=== PATIENT | male | born 1965 | race American Indian/Alaskan Native ===

== ENCOUNTER 2018-07-02 13:31 | Emergency (ER) | payer OTHER ==
--- NOTE | 2018-07-02 13:38 | Emergency Department Report ---
Blank Doc - Documentation Documentation: This is a 52-year-old male that presents with left shoulder pain. Stated inju red it at work. This initial assessment/diagnostic orders/clinical plan/treatment(s) is/are subject to change based on patient's health status, clinical progression and re- assessment by fellow clinical providers in the ED. Further treatment and workup at subsequent clinical providers discretion. Patient/guardians urged not to elope from the ED as their condition may be serious if not clinically assessed and managed. Initial orders include: 1- Patient sent to [facility] for further evaluation and treatment 2- xray
--- NOTE | 2018-07-02 14:17 | XRay Report ---
Left shoulder 3 views: History: Shoulder pain. Findings: Moderate arthritic changes a.c. joint. Glenohumeral joint appears normal. Cystic area but it tuberosity humerus. No adjacent soft tissue calcification. Impression: Findings as detailed above. Arthritic changes at a.c. joint and
[2018-07-02] MEDS ORDERED: TORADOL IM ONE (16:09)
[2018-07-02] MEDS ORDERED: TORADOL ONE (16:12)
--- NOTE | 2018-07-02 16:50 | Emergency Department Report ---
ED Extremity Problem HPI - General Chief complaint: Shoulder Injury Stated complaint: LFT SHOULDER PAIN Time Seen by Provider: 07/02/18 13:37 Source: patient Mode of arrival: Ambulatory Limitations: No Limitations - History of Present Illness Initial comments: Patient 52-year-old -[place] male who states at work he was lifting something over his head and he felt some pain in his left shoulder and left neck. Patient states the pain is aching throbbing sensation is 7 out of 10 with radiation down through his left arm. Patient denies any direct trauma. Severity scale (0 -10): 7 - Related Data Previous Rx's Medication Instructions Recorded Last Taken Type HYDROcodone/APAP 10-325 [[place] 1 each PO Q6HR PRN #20 tablet 03/28/15 Unknown Rx 10/325] cephALEXin [Keflex] 500 mg PO Q12HR #40 cap 03/28/15 Unknown Rx Ibuprofen [Ibu] 800 mg PO Q8H PRN #20 tablet 07/02/18 Unknown Rx methOCARBAMOL [Robaxin TAB] 500 mg PO Q6H PRN #14 tablet 07/02/18 Unknown Rx traMADol [Ultram] 50 mg PO Q6HR PRN #12 tablet 07/02/18 Unknown Rx Allergies Allergy/AdvReac Type Severity Reaction Status Date / Time No Known Allergies Allergy Unverified 03/28/15 11:52 ED Review of Systems ROS: Stated complaint: LFT SHOULDER PAIN Other details as noted in HPI Comment: All other systems reviewed and negative ED Past Medical Hx - Past Medical History Previous Medical History?: No - Surgical History Past Surgical History?: No - Social History Smoking Status: Current Every Day Smoker Substance Use Type: Alcohol - Medications Home Medications: Home Medications Medication Instructions Recorded Confirmed Last Taken Type HYDROcodone/APAP 10-325 [[place] 1 each PO Q6HR PRN #20 tablet 03/28/15 Unknown Rx 10/325] cephALEXin [Keflex] 500 mg PO Q12HR #40 cap 03/28/15 Unknown Rx Ibuprofen [Ibu] 800 mg PO Q8H PRN #20 tablet 07/02/18 Unknown Rx methOCARBAMOL [Robaxin TAB] 500 mg PO Q6H PRN #14 tablet 07/02/18 Unknown Rx traMADol [Ultram] 50 mg PO Q6HR PRN #12 tablet 07/02/18 Unknown Rx ED Physical Exam - General Limitations: No Limitations General appearance: alert, in no apparent distress - Head Head exam: Present: atraumatic, normocephalic - Eye Eye exam: Present: normal appearance - ENT ENT exam: Present: mucous membranes moist - Neck Neck exam: Present: normal inspection - Respiratory Respiratory exam: Present: normal lung sounds bilaterally. Absent: respiratory distress - Cardiovascular Cardiovascular Exam: Present: regular rate, normal rhythm. Absent: systolic murmur, diastolic murmur, rubs, gallop - GI/Abdominal GI/Abdominal exam: Present: soft, normal bowel sounds - Rectal Rectal exam: Present: deferred - Extremities Exam Extremities exam: Present: normal inspection - Expanded Upper Extremity Exam Left Shoulder Exam: Present: full ROM, tenderness (generalized). Absent: swelling, abrasion, laceration, ecchymosis, deformity, crepidus, dislocation, erythema - Back Exam Back exam: Present: normal inspection - Neurological Exam Neurological exam: Present: alert, oriented X3 - Psychiatric Psychiatric exam: Present: normal affect, normal mood - Skin Skin exam: Present: warm, dry, intact, normal color. Absent: rash ED Course Vital Signs 07/02/18 07/02/18 13:37 16:15 Temperature 97.7 F Pulse Rate 89 Respiratory 16 18 Rate Blood Pressure 148/99 O2 Sat by Pulse 99 Oximetry ED Medical Decision Making - Radiology Data X-ray shows arthritic changes to the before meals joint but otherwise no acute process - Medical Decision Making Patient likely with cervical radiculopathy secondary to raise his head and straining his neck causing a pinched nerve. Patient will be given this symptomatically be discharged home. Critical care attestation.: If time is entered above; I have spent that time in minutes in the direct care of this critically ill patient, excluding procedure time. ED Disposition Clinical Impression: Cervical radiculopathy Disposition: DC-01 TO HOME OR SELFCARE Is pt being admited?: No Does the pt Need Aspirin: No Condition: Stable Instructions: Cervical Radiculopathy (ED) Referrals: [facility] [Other] - 3-5 Days Time of Disposition: 16:49
[2018-07-02 16:57] VITALS: BP 141/90
== END 2018-07-02 16:57 | disposition home or self-care (01) ==
LOC: ED 13:31
DX: M54.12 Radiculopathy, cervical region (principal); F17.200 Nicotine dependence, unspecified, uncomplicated
CPT/HCPCS: 73030; 96372; 99283; J1885

== ENCOUNTER 2018-10-02 19:00 | Emergency (ER) | payer SELFPAY ==
[2018-10-02 19:13] VITALS: BP 132/89
[2018-10-02] MEDS ORDERED: IBUPROFEN PO ONE (19:20)
--- NOTE | 2018-10-02 19:21 | Emergency Department Report ---
ED General Adult HPI - General Chief complaint: Urogenital-Male Stated complaint: GROIN PAINFUL Time Seen by Provider: 10/02/18 19:16 Source: patient Mode of arrival: Ambulatory Limitations: No Limitations - History of Present Illness Initial comments: 53 y/o male comes in for right groin pain after slipping and did a slit. Patient denies any testicular pain or swelling. Patient report that this happen a day ago while at work. Patient took 1 dose of IB. Denies any blood in urine. Patient denies any other injuries. Onset/Timin -: days(s) Location: genitals (Groin) Severity scale (0 -10): 5 Quality: aching Consistency: intermittent Improves with: none Worsens with: none Associated Symptoms: denies other symptoms Treatments Prior to Arrival: none - Related Data Previous Rx's Medication Instructions Recorded Last Taken Type HYDROcodone/APAP 10-325 [[place] 1 each PO Q6HR PRN #20 tablet 03/28/15 Unknown Rx 10/325] cephALEXin [Keflex] 500 mg PO Q12HR #40 cap 03/28/15 Unknown Rx Ibuprofen [Ibu] 800 mg PO Q8H PRN #20 tablet 07/02/18 Unknown Rx methOCARBAMOL [Robaxin TAB] 500 mg PO Q6H PRN #14 tablet 07/02/18 Unknown Rx traMADol [Ultram] 50 mg PO Q6HR PRN #12 tablet 07/02/18 Unknown Rx Ibuprofen [Motrin 800 MG tab] 800 mg PO Q8HR PRN #21 tablet 10/02/18 Unknown Rx Allergies Allergy/AdvReac Type Severity Reaction Status Date / Time No Known Allergies Allergy Unverified 03/28/15 11:52 ED Review of Systems ROS: Stated complaint: GROIN PAINFUL Other details as noted in HPI Comment: All other systems reviewed and negative ED Past Medical Hx - Social History Smoking Status: Current Every Day Smoker Substance Use Type: Alcohol - Medications Home Medications: Home Medications Medication Instructions Recorded Confirmed Last Taken Type HYDROcodone/APAP 10-325 [[place] 1 each PO Q6HR PRN #20 tablet 03/28/15 Unknown Rx 10/325] cephALEXin [Keflex] 500 mg PO Q12HR #40 cap 03/28/15 Unknown Rx Ibuprofen [Ibu] 800 mg PO Q8H PRN #20 tablet 07/02/18 Unknown Rx methOCARBAMOL [Robaxin TAB] 500 mg PO Q6H PRN #14 tablet 07/02/18 Unknown Rx traMADol [Ultram] 50 mg PO Q6HR PRN #12 tablet 07/02/18 Unknown Rx Ibuprofen [Motrin 800 MG tab] 800 mg PO Q8HR PRN #21 tablet 10/02/18 Unknown Rx ED Physical Exam - General Limitations: No Limitations General appearance: alert, in no apparent distress - Head Head exam: Present: atraumatic, normocephalic - Eye Eye exam: Present: normal appearance - ENT ENT exam: Present: mucous membranes moist - Cardiovascular Cardiovascular Exam: Present: regular rate, normal rhythm. Absent: systolic murmur, diastolic murmur, rubs, gallop - GI/Abdominal GI/Abdominal exam: Present: soft, normal bowel sounds - exam: Absent: testicular tenderness, scrotal swelling External exam: Present: other (right groin tenderness with palpation. ) - Extremities Exam Extremities exam: Present: normal inspection - Back Exam Back exam: Present: normal inspection - Neurological Exam Neurological exam: Present: alert, oriented X3 ED Course Vital Signs 10/02/18 19:11 Temperature 97.8 F Pulse Rate 97 H Blood Pressure 132/89 O2 Sat by Pulse 97 Oximetry ED Medical Decision Making - Medical Decision Making 53 y/o male comes in for right groin pain after slipping and did a slit. Patient denies any testicular pain or swelling. Patient report that this happen a day ago while at work. Patient took 1 dose of IB. Denies any blood in urine. Patient denies any other injuries. Patient was givenIB 800mg now and will be discharge on IB 800mg and rest. Critical care attestation.: If time is entered above; I have spent that time in minutes in the direct care of this critically ill patient, excluding procedure time. ED Disposition Clinical Impression: Strain of muscle of right groin region Disposition: DC-01 TO HOME OR SELFCARE Is pt being admited?: No Does the pt Need Aspirin: No Condition: Stable Instructions: Muscle Strain (ED) Additional Instructions: Return to ER for wosening symptoms. Prescriptions: Ibuprofen [Motrin 800 MG tab] 800 mg PO Q8HR PRN #21 tablet PRN Reason: Pain , Severe (7-10) Referrals: [facility] [Provider Group] - 3-5 Days Forms: Work/School Release Form(ED)
== END 2018-10-02 20:24 | disposition home or self-care (01) ==
LOC: ED 19:00
DX: S39.011A Strain of muscle, fascia and tendon of abdomen, initial encounter (principal); F17.200 Nicotine dependence, unspecified, uncomplicated; Z79.899 Other long term (current) drug therapy; W18.40XA Slipping, tripping and stumbling without falling, unspecified, initial encounter; Y93.89 Activity, other specified; Y92.89 Other specified places as the place of occurrence of the external cause; Y99.8 Other external cause status
CPT/HCPCS: 99282

== ENCOUNTER 2019-02-06 23:00 | Emergency (ER) | payer SELFPAY ==
[2019-02-06 23:30] VITALS: BP 181/113
--- NOTE | 2019-02-07 00:30 | Emergency Department Report ---
ED ENT HPI - General Chief complaint: Nosebleed Stated complaint: NOSE BLEED Time Seen by Provider: 02/06/19 23:58 Source: patient Mode of arrival: Ambulatory Limitations: No Limitations - History of Present Illness Initial comments: 53-year-old male with history of hypertension and presents to ED for nosebleed. Patient states he had a nosebleed while at work and was told to come to the ER by his manager solution. Patient states over the last 6 months he has been having intermittent nosebleeds. The patient states they usually resolve pressure. Patient does not have a primary care physician, is not currently taking any medications, including no antihypertensives and no blood thinners. Nosebleed has currently resolved. Patient has no complaints. Denies headache. MD complaint: epistaxis -: This evening Location: nose Severity: mild Consistency: now resolved Improves with: pressure Worsens with: none Context-Epistaxis: history of similar - Related Data Previous Rx's Medication Instructions Recorded Last Taken Type HYDROcodone/APAP 10-325 [[place] 1 each PO Q6HR PRN #20 tablet 03/28/15 Unknown Rx 10/325] cephALEXin [Keflex] 500 mg PO Q12HR #40 cap 03/28/15 Unknown Rx Ibuprofen [Ibu] 800 mg PO Q8H PRN #20 tablet 07/02/18 Unknown Rx methOCARBAMOL [Robaxin TAB] 500 mg PO Q6H PRN #14 tablet 07/02/18 Unknown Rx traMADoL [Ultram] 50 mg PO Q6HR PRN #12 tablet 07/02/18 Unknown Rx Ibuprofen [Motrin 800 MG tab] 800 mg PO Q8HR PRN #21 tablet 10/02/18 Unknown Rx hydroCHLOROthiazide [HCTZ] 25 mg PO QDAY #30 tablet 02/07/19 Unknown Rx Allergies Allergy/AdvReac Type Severity Reaction Status Date / Time No Known Allergies Allergy Verified 02/06/19 23:13 ED Dental HPI - General Chief complaint: Nosebleed Stated complaint: NOSE BLEED Time Seen by Provider: 02/06/19 23:58 Source: patient Mode of arrival: Ambulatory Limitations: No Limitations - Related Data Previous Rx's Medication Instructions Recorded Last Taken Type HYDROcodone/APAP 10-325 [[place] 1 each PO Q6HR PRN #20 tablet 03/28/15 Unknown Rx 10/325] cephALEXin [Keflex] 500 mg PO Q12HR #40 cap 03/28/15 Unknown Rx Ibuprofen [Ibu] 800 mg PO Q8H PRN #20 tablet 07/02/18 Unknown Rx methOCARBAMOL [Robaxin TAB] 500 mg PO Q6H PRN #14 tablet 07/02/18 Unknown Rx traMADoL [Ultram] 50 mg PO Q6HR PRN #12 tablet 07/02/18 Unknown Rx Ibuprofen [Motrin 800 MG tab] 800 mg PO Q8HR PRN #21 tablet 10/02/18 Unknown Rx hydroCHLOROthiazide [HCTZ] 25 mg PO QDAY #30 tablet 02/07/19 Unknown Rx Allergies Allergy/AdvReac Type Severity Reaction Status Date / Time No Known Allergies Allergy Verified 02/06/19 23:13 ED Review of Systems ROS: Stated complaint: NOSE BLEED Other details as noted in HPI Comment: All other systems reviewed and negative ENT: epistaxis Neurological: denies: headache Hematological/Lymphatic: denies: easy bruising ED Past Medical Hx - Past Medical History Previous Medical History?: Yes Hx Hypertension: Yes - Surgical History Past Surgical History?: No - Social History Smoking Status: Never Smoker Substance Use Type: None - Medications Home Medications: Home Medications Medication Instructions Recorded Confirmed Last Taken Type HYDROcodone/APAP 10-325 [[place] 1 each PO Q6HR PRN #20 tablet 03/28/15 Unknown Rx 10/325] cephALEXin [Keflex] 500 mg PO Q12HR #40 cap 03/28/15 Unknown Rx Ibuprofen [Ibu] 800 mg PO Q8H PRN #20 tablet 07/02/18 Unknown Rx methOCARBAMOL [Robaxin TAB] 500 mg PO Q6H PRN #14 tablet 07/02/18 Unknown Rx traMADoL [Ultram] 50 mg PO Q6HR PRN #12 tablet 07/02/18 Unknown Rx Ibuprofen [Motrin 800 MG tab] 800 mg PO Q8HR PRN #21 tablet 10/02/18 Unknown Rx hydroCHLOROthiazide [HCTZ] 25 mg PO QDAY #30 tablet 02/07/19 Unknown Rx ED Physical Exam - General Limitations: No Limitations General appearance: alert, in no apparent distress - Head Head exam: Present: atraumatic, normocephalic - Eye Eye exam: Present: normal appearance, EOMI - ENT ENT exam: Present: other (dried blood in right nare, no active bleeding) - Neck Neck exam: Present: normal inspection - Respiratory Respiratory exam: Present: normal lung sounds bilaterally. Absent: respiratory distress - Cardiovascular Cardiovascular Exam: Present: regular rate, normal rhythm - GI/Abdominal GI/Abdominal exam: Absent: distended - Extremities Exam Extremities exam: Present: normal inspection - Neurological Exam Neurological exam: Present: alert, oriented X3, CN II-XII intact. Absent: motor sensory deficit - Psychiatric Psychiatric exam: Present: normal affect, normal mood - Skin Skin exam: Present: warm, dry, intact, normal color ED Course Vital Signs 02/06/19 02/07/19 23:06 01:04 Temperature 98.4 F 98.4 F Pulse Rate 77 77 Respiratory 20 20 Rate Blood Pressure 181/113 O2 Sat by Pulse 98 98 Oximetry ED Medical Decision Making - Medical Decision Making 53-year-old male presents to ED following nosebleed because he was instructed to do so by his manager solution at work. Patient states nosebleeds intermittently over the last 6 months. Patient currently has no active bleeding. Blood pressure is elevated, however he is asymptomatic. Will start patient on hydrochlorothiazide. Advised outpatient follow-up. Referrals given. - Differential Diagnosis epistaxis, HTN Critical care attestation.: If time is entered above; I have spent that time in minutes in the direct care of this critically ill patient, excluding procedure time. ED Disposition Clinical Impression: Epistaxis, Uncontrolled hypertension Disposition: TO HOME OR SELFCARE Is pt being admited?: No Condition: Stable Instructions: Epistaxis (ED), Hypertension (ED) Prescriptions: hydroCHLOROthiazide [HCTZ] 25 mg PO QDAY #30 tablet Referrals: [facility] [Provider Group] - 3-5 Days KIRA MATHEWS MD [Staff Physician] - 3-5 Days [facility] [Outside] - 3-5 Days Time of Disposition: 00:30
== END 2019-02-07 01:04 | disposition home or self-care (01) ==
LOC: ED 23:00
DX: I10 Essential (primary) hypertension (principal); R04.0 Epistaxis; Z79.1 Long term (current) use of non-steroidal anti-inflammatories (NSAID); Z79.899 Other long term (current) drug therapy
CPT/HCPCS: 99282

== ENCOUNTER 2019-06-02 23:15 | Emergency (ER) | payer SELFPAY ==
--- NOTE | 2019-06-03 00:33 | XRay Report ---
CHEST 2 VIEWS INDICATION / CLINICAL INFORMATION: cough. COMPARISON: None available. FINDINGS: SUPPORT DEVICES: None. HEART / MEDIASTINUM: Heart size is normal. Mild atherosclerotic changes are noted in the thoracic aor ta. LUNGS / PLEURA: No significant pulmonary or pleural abnormality. No pneumothorax. ADDITIONAL FINDINGS: No significant additional findings. IMPRESSION: 1. No acute findings. Signer Name: Adalberto Cuellar MD Signed: 06/03/2019 12:29 AM Workstation Name: [id number]
[2019-06-03] MEDS ORDERED: KETOROLAC 30 MG/1 ML INJ IV ONE (02:47)
[2019-06-03] MEDS ORDERED: ONDANSETRON 4 MG/2 ML INJ IV ONE (02:47)
[2019-06-03] MEDS ORDERED: DIPHENOXYLATE/ATROPINE TAB PO ONE (02:47)
[2019-06-03] MEDS ORDERED: FAMOTIDINE 20 MG/2 ML INJ IV ONE (02:48)
[2019-06-03 03:16] LABS: Basophils % (Auto) 0.5 % (0.0-1.8); Eosinophils # (Auto) 0.1 K/mm3 (0.0-0.4); Hematocrit 42.1 % (35.5-45.6); Hemoglobin 14.3 gm/dl (11.8-15.2); Lymphocytes % (Auto) 44.4 % (13.4-35.0); Mean Corpuscular HGB Conc 34 % (32-34); Mean Corpuscular Volume 88 fl (84-94); Monocytes # (Auto) 0.7 K/mm3 (0.0-0.8); Monocytes % (Auto) 10.1 % (0.0-7.3); Red Blood Count 4.81 M/mm3 (3.65-5.03); Red Cell Distribution Width 14.7 % (13.2-15.2)
[2019-06-03 03:22] LABS: Platelet Count 146 K/mm3 (140-440)
[2019-06-03 03:26] LABS: Alanine Aminotransferase 63 units/L (7-56); Albumin 4.7 g/dL (3.9-5); BUN/Creatinine Ratio 13; Blood Urea Nitrogen 10 mg/dL (9-20); Calcium 9.5 mg/dL (8.4-10.2); Hemolysis Index 72
[2019-06-03] MEDS ORDERED: SODIUM CHLORIDE 0.9% 1000 ML 1,000 ML IV ONE (03:28)
--- NOTE | 2019-06-03 04:02 | Cat Scan Report ---
CT abdomen pelvis w con INDICATION / CLINICAL INFORMATION: Pt complains of L.L.Q. abd pain and Diarrhea. Diverticulitis. TECHNIQUE: All CT scans at this location are performed using CT dose reduction for ALARA by means of automated e xposure control. COMPARISON: None available. FINDINGS: Limited lower thoracic images are negative. ABDOMEN: The gallbladder, liver, spleen, pancreas and kidneys are normal. No adrenal masses or retroperitoneal adenopathy. Small bowel is normal in appearance. Pelvis: The appendix is normal. No acute colon abnormality. No inflammatory changes or dependent fluid collections are seen in the pelvis. No acute colon abnormality Degenerative changes are identified in the lumbosacral spine and right hip. IMPRESSION: 1. No acute abnormality. Signer Name: Adalberto Cuellar MD Signed: 06/03/2019 3:57 AM Workstation Name: [id number]
[2019-06-03 05:35] LABS: Bilirubin,Urine NEG (Negative); Blood,Urine NEG (Negative); Color,Urine Colorless (Yellow); Protein,Urine <15 mg/dL mg/dL (Negative); RBC,Urine < 1.0 /HPF (0.0-6.0); Urobilinogen,Urine < 2.0 mg/dL (<2.0); WBC,Urine < 1.0 /HPF (0.0-6.0)
--- NOTE | 2019-06-03 06:03 | Emergency Department Report ---
ED General Adult HPI - General Chief complaint: Fever Stated complaint: DIARRHEA,FEVER Source: patient Mode of arrival: Ambulatory Limitations: No Limitations - History of Present Illness Initial comments: Patient is a 53-year-old -[place] male with past medical history of hypertension who presents to the ED with complaint of acute onset persistent acute onset persistent nasal and sinus congestion, persistent dry cough, intermittent diarrhea and left lower quadrant abdominal pain for the last 2 weeks with subjective fever. Patient states that in the last 2 days, diarrhea and nasal congestion have worsened. Patient denies dizziness, syncope, testicular pain, chest pain, shortness of breath, nausea, vomiting, hematuria, low back pain, sore throat, headache, body aches and syncope or palpitations. Patient states that no one else at home is had similar symptoms. MD Complaint: Cough, nasal congestion; LLQ pain and subjective fever x 2 weeks -: Gradual, week(s) (2) Location: chest, abdomen Radiation: non-radiation Severity scale (0 -10): 3 Quality: aching, dull Consistency: constant Improves with: none Worsens with: none Associated Symptoms: denies other symptoms, cough, fever/chills, headaches, loss of appetite, malaise. denies: confusion, chest pain, diaphoresis, nausea/vomiting, rash, seizure, shortness of breath, syncope, weakness, other Treatments Prior to Arrival: none - Related Data Previous Rx's Medication Instructions Recorded Last Taken Type HYDROcodone/APAP 10-325 [[place] 1 each PO Q6HR PRN #20 tablet 03/28/15 Unknown Rx 10/325] cephALEXin [Keflex] 500 mg PO Q12HR #40 cap 03/28/15 Unknown Rx Ibuprofen [Ibu] 800 mg PO Q8H PRN #20 tablet 07/02/18 Unknown Rx methOCARBAMOL [Robaxin TAB] 500 mg PO Q6H PRN #14 tablet 07/02/18 Unknown Rx traMADoL [Ultram] 50 mg PO Q6HR PRN #12 tablet 07/02/18 Unknown Rx Ibuprofen [Motrin 800 MG tab] 800 mg PO Q8HR PRN #21 tablet 10/02/18 Unknown Rx hydroCHLOROthiazide [HCTZ] 25 mg PO QDAY #30 tablet 02/07/19 Unknown Rx Benzonatate [Tessalon Perles] 100 mg PO Q8HR #30 capsule 06/03/19 Unknown Rx Cetirizine HCl [Zyrtec 10mg tab] 10 mg PO DAILY #30 tablet 06/03/19 Unknown Rx Dicyclomine [Bentyl] 20 mg PO Q6H PRN #24 tablet 06/03/19 Unknown Rx Diphenoxylate/Atropine [Lomotil] 1 - 2 tab PO Q4H PRN #15 tablet 06/03/19 Unknown Rx Allergies Allergy/AdvReac Type Severity Reaction Status Date / Time No Known Allergies Allergy Verified 02/06/19 23:13 ED Review of Systems ROS: Stated complaint: DIARRHEA,FEVER Other details as noted in HPI Constitutional: chills, fever, malaise Eyes: denies: eye pain, eye discharge, vision change ENT: congestion. denies: ear pain, throat pain Respiratory: cough. denies: shortness of breath, wheezing Cardiovascular: denies: chest pain, palpitations Endocrine: no symptoms reported Gastrointestinal: abdominal pain (Left lower quadrant pain), diarrhea. denies: nausea, vomiting Genitourinary: denies: urgency, dysuria Musculoskeletal: denies: back pain, joint swelling, arthralgia Skin: denies: rash, lesions Neurological: denies: headache, weakness, paresthesias Psychiatric: denies: anxiety, depression Hematological/Lymphatic: denies: easy bleeding, easy bruising ED Past Medical Hx - Past Medical History Previous Medical History?: Yes Hx Hypertension: Yes - Surgical History Past Surgical History?: No - Social History Smoking Status: Current Every Day Smoker Substance Use Type: Alcohol - Medications Home Medications: Home Medications Medication Instructions Recorded Confirmed Last Taken Type HYDROcodone/APAP 10-325 [[place] 1 each PO Q6HR PRN #20 tablet 03/28/15 Unknown Rx 10/325] cephALEXin [Keflex] 500 mg PO Q12HR #40 cap 03/28/15 Unknown Rx Ibuprofen [Ibu] 800 mg PO Q8H PRN #20 tablet 07/02/18 Unknown Rx methOCARBAMOL [Robaxin TAB] 500 mg PO Q6H PRN #14 tablet 07/02/18 Unknown Rx traMADoL [Ultram] 50 mg PO Q6HR PRN #12 tablet 07/02/18 Unknown Rx Ibuprofen [Motrin 800 MG tab] 800 mg PO Q8HR PRN #21 tablet 10/02/18 Unknown Rx hydroCHLOROthiazide [HCTZ] 25 mg PO QDAY #30 tablet 02/07/19 Unknown Rx Benzonatate [Tessalon Perles] 100 mg PO Q8HR #30 capsule 06/03/19 Unknown Rx Cetirizine HCl [Zyrtec 10mg tab] 10 mg PO DAILY #30 tablet 06/03/19 Unknown Rx Dicyclomine [Bentyl] 20 mg PO Q6H PRN #24 tablet 06/03/19 Unknown Rx Diphenoxylate/Atropine [Lomotil] 1 - 2 tab PO Q4H PRN #15 tablet 06/03/19 Unknown Rx ED Physical Exam - General Limitations: No Limitations General appearance: alert, in no apparent distress - Head Head exam: Present: atraumatic, normocephalic, normal inspection - Eye Eye exam: Present: normal appearance, PERRL, EOMI Pupils: Present: normal accommodation - ENT ENT exam: Present: normal exam, normal orophraynx, mucous membranes moist, TM's normal bilaterally, normal external ear exam - Neck Neck exam: Present: normal inspection, full ROM - Respiratory Respiratory exam: Present: normal lung sounds bilaterally. Absent: respiratory distress, wheezes, rales, stridor, chest wall tenderness, accessory muscle use, decreased breath sounds - Cardiovascular Cardiovascular Exam: Present: regular rate, normal rhythm, normal heart sounds. Absent: systolic murmur, diastolic murmur, rubs, gallop - GI/Abdominal GI/Abdominal exam: Present: soft, normal bowel sounds. Absent: tenderness, guarding, hyperactive bowel sounds, hypoactive bowel sounds, organomegaly - Extremities Exam Extremities exam: Present: normal inspection, full ROM, normal capillary refill - Back Exam Back exam: Present: normal inspection, full ROM. Absent: CVA tenderness (L) - Neurological Exam Neurological exam: Present: alert, oriented X3, CN II-XII intact, normal gait, reflexes normal - Psychiatric Psychiatric exam: Present: normal affect, normal mood, anxious - Skin Skin exam: Present: warm, dry, intact, normal color. Absent: rash ED Course Vital Signs 06/02/19 23:19 Temperature 97.7 F Pulse Rate 99 H Respiratory 20 Rate Blood Pressure 169/105 O2 Sat by Pulse 99 Oximetry ED Medical Decision Making - Lab Data Result diagrams: 06/03/19 02:55 06/03/19 02:55 - Radiology Data Radiology results: report reviewed, image reviewed Findings [address] [address] XRay Report Signed Patient: LUCY JOHNSON MR #: [id number] : 1965 Acct:[id number] Age/Sex: 53 / M ADM Date: 06/02/19 Loc: ED Attending Dr: Ordering Physician: KATHLEEN GIBSON MD Date of Service: 06/02/19 Procedure(s): XR chest routine 2V Accession Number(s): [id number] cc: ED MD PAIGE Fluoro Time In Minutes: CHEST 2 VIEWS INDICATION / CLINICAL INFORMATION: cough. COMPARISON: None available. FINDINGS: SUPPORT DEVICES: None. HEART / MEDIASTINUM: Heart size is normal. Mild atherosclerotic changes are noted in the thoracic aorta. LUNGS / PLEURA: No significant pulmonary or pleural abnormality. No pneumothorax. ADDITIONAL FINDINGS: No significant additional findings. IMPRESSION: 1. No acute findings. Signer Name: Adalberto Cuellar MD Signed: 06/03/2019 12:29 AM Workstation Name: [id number] Transcribed By: ELYSSA Dictated By: Adalberto Cuellar MD Electronically Authenticated By: Adalberto Cuellar MD Signed Date/Time: 06/03/1928 DD/ TD/TT: Findings [address] [address] XRay Report Signed Patient: LUCY JOHNSON MR #: [id number] : 1965 Acct:[id number] Age/Sex: 53 / M ADM Date: 06/02/19 Loc: ED Attending Dr: Ordering Physician: KATHLEEN GIBSON MD Date of Service: 06/02/19 Procedure(s): XR chest routine 2V Accession Number(s): [id number] cc: ED MD PAIGE Fluoro Time In Minutes: CHEST 2 VIEWS INDICATION / CLINICAL INFORMATION: cough. COMPARISON: None available. FINDINGS: SUPPORT DEVICES: None. HEART / MEDIASTINUM: Heart size is normal. Mild atherosclerotic changes are noted in the thoracic aorta. LUNGS / PLEURA: No significant pulmonary or pleural abnormality. No pneumothorax. ADDITIONAL FINDINGS: No significant additional findings. IMPRESSION: 1. No acute findings. Signer Name: Adalberto Cuellar MD Signed: 06/03/2019 12:29 AM Workstation Name: [id number] Transcribed By: ELYSSA Dictated By: Adalberto Cuellar MD Electronically Authenticated By: Adalberto Cuellar MD Signed Date/Time: 06/03/1928 DD/ TD/TT: - Medical Decision Making This is a 53-year-old male who presented to the ED with acute onset persistent nasal and sinus congestion, persistent dry cough, diffuse body aches and pains, subjective fever and chills, diarrhea, and left lower quadrant abdominal pain for the last 2 weeks. In the ED, patient is alert and oriented x3 and is not in distress. Lab test results were reviewed and are all nonactionable including urinalysis. Chest x-ray shows no acute cardiopulmonary abnormalities or pneumonitis. Abdomen pelvis CT scan with contrast shows no acute abdominal or pelvic abnormalities. Patient was treated in the ED for diarrhea, for pain, and also given normal saline 1 L IV bolus. On reevaluation, patient felt better, patient has not had any diarrhea in the ED throughout his stay in the ED. Patient was discharged home on medications and advised that he is symptoms are most likely viral upper respiratory as well as viral GI syndromes. Patient was advised to follow-up with his primary care physician in 3 to 5 days for reevaluation or return to the ED immediately if symptoms get worse. - Differential Diagnosis Viral URI; pneumonia; Viral Gastrioenteritis; Dehydration; UTI; Bronchitis Critical care attestation.: If time is entered above; I have spent that time in minutes in the direct care o f this critically ill patient, excluding procedure time. ED Disposition Clinical Impression: Viral URI with cough, Viral gastroenteritis Disposition: DC-01 TO HOME OR SELFCARE Is pt being admited?: No Does the pt Need Aspirin: No Condition: Stable Instructions: Gastroenteritis (ED), Acute Diarrhea (ED), Upper Respiratory Infection (ED), Acute Bronchitis (ED) Additional Instructions: All lab test results are unremarkable including imaging reports. Your symptoms are likely due to viral upper respiratory infection or viral gastroenteritis. Therefore take medication with food, drink plenty of fluids and follow-up with your primary care physician in 5 to 7 days for reevaluation. Return to the ED i mmediately if symptoms get worse. Prescriptions: Dicyclomine [Bentyl] 20 mg PO Q6H PRN #24 tablet PRN Reason: ABDOMINAL PAIN Diphenoxylate/Atropine [Lomotil] 1 - 2 tab PO Q4H PRN #15 tablet PRN Reason: Diarrhea Benzonatate [Tessalon Perles] 100 mg PO Q8HR #30 capsule Cetirizine HCl [Zyrtec 10mg tab] 10 mg PO DAILY #30 tablet Referrals: [facility] [Provider Group] - 7-10 days Time of Disposition: 06:06 Print Language: EAST TIM[place]
[2019-06-03 06:07] VITALS: BP 146/92
== END 2019-06-03 06:54 | disposition home or self-care (01) ==
LOC: ED 23:15
DX: K21.9 Gastro-esophageal reflux disease without esophagitis (principal); J06.9 Acute upper respiratory infection, unspecified; I10 Essential (primary) hypertension; F17.200 Nicotine dependence, unspecified, uncomplicated; Z79.899 Other long term (current) drug therapy
CPT/HCPCS: 36415; 71046; 74177; 80053; 81001; 83690; 85025; 96361; 96374; 96375; 99284; J1885; J2405; J7030; Q9967